=== PATIENT | female | born 1980 | race Caucasian/White ===

== ENCOUNTER 2020-06-01 15:20 | Emergency (ER) | payer SELFPAY ==
[2020-06-01 15:35] VITALS: BP 167/104; PULSE 87; RESP 18; TEMP 36.7; O2SAT 98; BMI 34.9
--- NOTE | 2020-06-01 15:54 | CTR_ITS ---
PROCEDURE INFORMATION: Exam: CT Neck With Contrast Exam date and time: 06/01/2020 4:30 PM Age: 39 years old Clinical indication: Other: Necrotic area on chin; Patient HX: Necrotic area R side of chin - ? spider bite 05/29; Additional info: Necrotic wound on chin TECHNIQUE: Imaging protocol: Computed tomography images of the neck with intravenous contrast. Radiation optimization: All CT scans at this facility use at least one of these dose optimization techniques: automated exposure control; mA and/or kV adjustment per patient size (includes targeted exams where dose is matched to clinical indication); or iterative reconstruction. Contrast material: OMNI 300; Contrast volume: 95 ml; Contrast route: INTRAVENOUS (IV); COMPARISON: No relevant prior studies available. RADIATION DOSE METRICS: Total DLP (mGy-cm): 437.24 FINDINGS: Nasopharynx: Unremarkable. Dental: Numerous missing teeth. Oropharynx: Unremarkable. No significant tonsillar enlargement. Hypopharynx: Unremarkable. Larynx: Unremarkable. Normal epiglottis. Retropharyngeal space: Unremarkable. Submandibular/Parotid glands: Normal. Glands are normal in size. Thyroid: Normal. No enlarged or calcified nodules. Lymph nodes: No visible evidence of significant lymphadenopathy or evidence of suppurative lymphadenitis. Trachea: Visualized trachea is unremarkable. Lungs: Unremarkable as visualized. Bones/joints: No visible active osseous pathology within the field of view. Soft tissues: No visible loculated fluid collection to suggest the presence of a seroma, hematoma, or abscess. Nose ring. CT/CT neck w con* [id number] IMPRESSION: 1. No visible loculated fluid collection to suggest the presence of an abscess, seroma, or hematoma. 2. No visible evidence of reactive lymphadenopathy or suppurative lymphadenitis. Radiation Dose CTDIVOL = (mGy): DLP = 437.24 (mGy-cm)
--- NOTE | 2020-06-01 15:57 | W.ED.WOUNDLC ---
HPI - Wound/Laceration General: Chief Complaint: Wound/Laceration Stated Complaint: spider bite Time Seen by Provider: 06/01/20 15:45 History of Present Illness: HPI narrative: Patient is a 39-year-old female comes to the ED with a wound on the chin. Patient suspects that she was bitten by a spider a couple days ago. Patient noticed on , May 30 that her chin was kind of sore and had some bruising. The bruising on the chin got bigger the next day. In the last 24 hours, the wound is ulcerated and has necrotic tissue and surrounding erythema. She rates the pain 10 out of 10 and she also states that she feels like it is swelling more and noticed that even when she breathes it is painful. She complains of having a headache and feeling light headed. Denies any fevers. Associated symptoms: Denies chills, fever(s), nausea or vomiting Review of Systems Const: Denies: fever(s), chills or fatigue Eyes: Denies: change in vision or eye discomfort ENMT: Denies: throat pain, odynophagia, nasal discharge or nasal congestion Card: Denies: chest pain, palpitations, edema, swelling of feet/ankles, dyspnea on exertion or orthopnea Resp: Denies: dyspnea, productive cough or non-productive cough GI: Denies: abdominal pain, nausea, vomiting, diarrhea, constipation or hematochezia : Denies: flank pain, dysuria or hematuria Musc: Denies: neck pain, back pain or extremity swelling Skin/Breast: Reports: erythema, skin tenderness and new lesions (Wound on chin-possible spider bite.); Denies: rash Neuro: Reports: headache(s); Denies: numbness in extremities or weakness in extremities [facility] ED PFSH: Social History Smoking and tobacco status: current every day smoker Alcohol intake: never Female Reproductive History: Date of last menstrual period: 05/13/20 Physical Exam Const: COMMON NORMALS: no acute distress, patient oriented x3 and alert GENERAL APPEARANCE: cooperative and comfortable HENMT: COMMON NORMALS: normocephalic HEAD & SCALP: normocephalic MOUTH: Normal oral and palatal mucosa present THROAT: posterior oropharynx normal and uvula midline Eye: COMMON NORMALS: Equal, round and reactive pupils present PUPIL: Yes Equal, round and reactive pupils present Neck/C-Spine: COMMON NORMALS: supple GENERAL: Yes normal visual inspection Resp: COMMON NORMALS: normal respiratory effort, No retractions, No use of accessory muscles and clear to auscultation bilaterally AUSCULTATION: clear to auscultation bilaterally Cardio: COMMON NORMALS: regular rate, regular rhythm, S1 normal heart sound present, S2 normal heart sound present, No gallops present (Cardio), No clicks present (Cardio), No murmurs present (Cardio) and Peripheral pulses 2+ throughout RATE: regular rate RHYTHM: regular rhythm HEART SOUNDS: S1 normal heart sound present and S2 normal heart sound present PERIPHERAL PULSES: Peripheral pulses 2+ throughout GI: COMMON NORMALS: Normal to inspection, nondistended, normoactive bowel sounds present, Soft to palpation, non-tender and no masses PALPATION: Yes Soft to palpation : COMMON NORMALS: Yes no CVA tenderness BLADDER/KIDNEY EXAM: Yes no CVA tenderness Back/Pelvis: COMMON NORMALS: no CVA tenderness Extremity: COMMON NORMALS: normal to inspection Neuro: COMMON NORMALS: patient oriented x3 and moves all extremities SENSORIUM/ORIENTATION: Yes alert Skin: WOUNDS: Yes wounds noted (Palpation of wound is firm and warm to the touch.) size (Ulcer approximately half a centimeter in length with surrounding necrotic tissue. There is also surrounding erythema and warmth.) and with surrounding erythema Course Vital Signs: Vital signs: Vital Signs Temperature 98.1 F 06/01/20 15:35 Pulse Rate 82 06/01/20 18:03 Respiratory Rate 14 06/01/20 18:03 Blood Pressure 138/104 06/01/20 18:03 Pulse Oximetry 97 06/01/20 18:03 MDM - Wound/Laceration MDM Narrative: Medical decision making narrative: Patient care was handed over to Rigoberto Burns's PRESCHOOL TEACHER'S ASSISTANT at 5pm. I discussed patient's case with him and told him that the CT of the neck is pending. Once CT report is back discharge plan can be made. Patient is a 31-year-old female comes to the ED with a spider bite on the chin. Wound is ulcerated and has necrotic tissue surrounding it along with surrounding erythema. White blood cells 9.8, hemoglobin 8.7. Blood culture obtained and pending. CT of the neck was performed and showed No visible loculated fluid collection to suggest the presence of an abscess, seroma, or hematoma. No visible evidence of reactive lymphadenopathy or suppurative lymphadenitis. Patient was given IV Rocephin and pain meds while here in the ED. Patient was discharged with a prescription for Keflex, Medrol Dosepak and hydrocodone for pain. Patient told to follow-up with PCP in several days. Patient understood and agreed with plan. Lab Data: Attestation: I reviewed the patient's lab results. Labs: Lab Results 06/01/20 06/01/20 06/01/20 Range/Units 16:00 16:00 16:00 WBC 9.8 (4.0-10.0) 10^3/ uL RBC 4.12 (4.1-5.3) 10^6/u L Hgb 8.7 L (11.5-15.3) g/dL Hct 30.1 L (37.0-47.0) % MCV 73.1 L (81-99) fL MCH 21.1 L (28.0-34.0) pg MCHC 28.9 L (30.0-36.0) g/dL RDW 18.4 H (12.1-15.1) % Plt Count 254 (130-400) 10^3/c mm MPV 10.2 (7.4-10.4) fL Neut % (Auto) 71.4 % Lymph % (Auto) 19.7 % Pershing % (Auto) 7.0 % Eos % (Auto) 1.1 % Baso % (Auto) 0.5 % Neut # (Auto) 7.01 (1.8-7.7) 10^3/u L Lymph # (Auto) 1.9 (0.8-4.8) 10^3/u L Pershing # (Auto) 0.7 (0.2-0.9) 10^3/u L Eos # (Auto) 0.1 (0.0-0.8) 10^3/u L Baso # (Auto) 0.1 (0.0-0.1) 10^3/u L Nucleated RBC % (a uto) 0 % Nucleated RBCs # 0.0 /100WBC Sodium 138 (136-145) mmol/L Potassium 3.8 (3.5-5.1) mmol/L Chloride 108 H (98-107) mmol/L Carbon Dioxide 19 L (22-29) mmol/L Anion Gap 14.8 (5-19) BUN 11 (6-20) mg/dL Creatinine 0.7 (0.5-0.9) mg/dL GFR Calculation 93.6 (90-130) mL/min Glucose 110 (65-115) mg/dL Calculated Osmolal ity 283 L (285-295) mOsm/k g Calcium 8.8 (8.5-10.5) mg/dL Total Bilirubin 0.2 (0.15-1.2) mg/dL AST 25 (0-32) U/L ALT 28 (0-33) U/L Alkaline Phosphata se 107 H (35-105) IU/L C-Reactive Protein 70.0 H (0.0-4.9) mg/L Total Protein 7.6 (6.6-8.7) g/dL Albumin 4.3 (3.5-5.2) g/dL Globulin 3.3 (1.3-4.6) g/dL HCG, Qual Negative (Negative) Blood Type Rho(D) Type Antibody Screen 06/01/20 Range/Units 16:56 WBC (4.0-10.0) 10^3/ uL RBC (4.1-5.3) 10^6/u L Hgb (11.5-15.3) g/dL Hct (37.0-47.0) % MCV (81-99) fL MCH (28.0-34.0) pg MCHC (30.0-36.0) g/dL RDW (12.1-15.1) % Plt Count (130-400) 10^3/c mm MPV (7.4-10.4) fL Neut % (Auto) % Lymph % (Auto) % Pershing % (Auto) % Eos % (Auto) % Baso % (Auto) % Neut # (Auto) (1.8-7.7) 10^3/u L Lymph # (Auto) (0.8-4.8) 10^3/u L Pershing # (Auto) (0.2-0.9) 10^3/u L Eos # (Auto) (0.0-0.8) 10^3/u L Baso # (Auto) (0.0-0.1) 10^3/u L Nucleated RBC % (a uto) % Nucleated RBCs # /100WBC Sodium (136-145) mmol/L Potassium (3.5-5.1) mmol/L Chloride (98-107) mmol/L Carbon Dioxide (22-29) mmol/L Anion Gap (5-19) BUN (6-20) mg/dL Creatinine (0.5-0.9) mg/dL GFR Calculation (90-130) mL/min Glucose (65-115) mg/dL Calculated Osmolal ity (285-295) mOsm/k g Calcium (8.5-10.5) mg/dL Total Bilirubin (0.15-1.2) mg/dL AST (0-32) U/L ALT (0-33) U/L Alkaline Phosphata se (35-105) IU/L C-Reactive Protein (0.0-4.9) mg/L Total Protein (6.6-8.7) g/dL Albumin (3.5-5.2) g/dL Globulin (1.3-4.6) g/dL HCG, Qual (Negative) Blood Type O Negative Rho(D) Type Negative Antibody Screen Negative Imaging Data^: Other CT: Attestation: I personally reviewed and interpreted this imaging study as follows: Radiologist's impression: [address] [address] [address] Scan Report Signed Patient: Amy Krishnan Unit #: [id number] : 1980 Age/Sex: 39 / F ADM Date: 06/01/20 Loc: ER Room/Bed: Attending Dr: Ordering Provider/Ordering MD: Malachi Santillan Date of Service: 06/01/20 Procedure(s): CT neck w con* [id number] Accession Number(s): [id number] Report Number: [id number] PROCEDURE INFORMATION: Exam: CT Neck With Contrast Exam date and time: 06/01/2020 4:30 PM Age: 39 years old Clinical indication: Other: Necrotic area on chin; Patient HX: Necrotic area R side of chin - ? spider bite 05/29; Additional info: Necrotic wound on chin TECHNIQUE: Imaging protocol: Computed tomography images of the neck with intravenous contrast. Radiation optimization: All CT scans at this facility use at least one of these dose optimization techniques: automated exposure control; mA and/or kV adjustment per patient size (includes targeted exams where dose is matched to clinical indication); or iterative reconstruction. Contrast material: OMNI 300; Contrast volume: 95 ml; Contrast route: INTRAVENOUS (IV); COMPARISON: No relevant prior studies available. RADIATION DOSE METRICS: Total DLP (mGy-cm): 437.24 FINDINGS: Nasopharynx: Unremarkable. Dental: Numerous missing teeth. Oropharynx: Unremarkable. No significant tonsillar enlargement. Hypopharynx: Unremarkable. Larynx: Unremarkable. Normal epiglottis. Retropharyngeal space: Unremarkable. Submandibular/Parotid glands: Normal. Glands are normal in size. Thyroid: Normal. No enlarged or calcified nodules. Lymph nodes: No visible evidence of significant lymphadenopathy or evidence of suppurative lymphadenitis. Trachea: Visualized trachea is unremarkable. Lungs: Unremarkable as visualized. Bones/joints: No visible active osseous pathology within the field of view. Soft tissues: No visible loculated fluid collection to suggest the presence of a seroma, hematoma, or abscess. Nose ring. CT/CT neck w con* [id number] IMPRESSION: 1. No visible loculated fluid collection to suggest the presence of an abscess, seroma, or hematoma. 2. No visible evidence of reactive lymphadenopathy or suppurative lymphadenitis. Radiation Dose CTDIVOL = (mGy): DLP = 437.24 (mGy-cm) Dictated By: Sudhir Alexander Signed By: Sudhir Alexander Signed Date/Time: 06/01/201725 DD/ 24 Discharge Plan Discharge Patient Disposition: Home Clinical Impression: Brown recluse spider bite Qualifiers: Encounter type: initial encounter Injury intent: accidental or unintentional Qualified Code(s): T63.331A - Toxic effect of venom of brown recluse spider, accidental (unintentional), initial encounter Condition: Stable Prescriptions: New Medrol (Saman) 4 mg tablets,dose pack See Rx Instructions .ROUTE .COMPLEX Qty: 21 RF: 0 hydrocodone-acetaminophen 5-325 mg tablet 1 tab PO Q6H PRN (Reason: pain) Qty: 10 RF: 0 Keflex 500 mg capsule 500 mg PO TID 7 Days Qty: 21 RF: 0 No Action Benadryl Allergy 25 mg Tablet 25 mg PO DAILY RF: 0 ibuprofen 200 mg Tablet 200 - 400 mg PO PRN PRN (Reason: Pain) RF: 0 omeprazole 20 mg Tablet,Delayed Release (Dr/Ec) 20 mg PO DAILY RF: 0 Discharge Orders: Discharge Order (Routine); Ordered 06/01/20 Ordered By: Rigoberto Burns Discharge Diet: Usual diet Discharge Activity: Resume usual activity Patient Instructions: Brown Recluse Spider Bite (ED) Activity Restrictions/Additional Instructions: Follow-up with medical provider as directed. Take medications as prescribed. Return to the ER or your medical provider if condition worsens. Please read and understand discharge instructions. If any questions ask please. Off work for 2 days. Establish with a primary care provider in this area. If you can find 1 go to the urgent care to establish. 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
[2020-06-01] MEDS: cefTRIAXone 2,000 MG in sodium chloride 0.9% (plus) 50 ML 100 MG IV (16:04)
[2020-06-01] MEDS: ondansetron 2 mg/ML SDV 2 mL 4 MG IVP (16:04)
[2020-06-01] MEDS: morphine 4 mg/mL SDV 1 mL IVP (16:04)
[2020-06-01] MEDS: sodium chloride 0.9% 1,000 ML 999 ML IV (16:05)
[2020-06-01 16:12] VITALS: BP 176/105; PULSE 85; RESP 14; O2SAT 98
[2020-06-01 16:17] LABS: Basophils # 0.1 10^3/uL (0.0-0.1); Basophils % 0.5 %; Eosinophils # 0.1 10^3/uL (0.0-0.8); Eosinophils % 1.1 %; Hematocrit 30.1 % (37.0-47.0); Hemoglobin 8.7 g/dL (11.5-15.3); Lymphocytes # 1.9 10^3/uL (0.8-4.8); Lymphocytes % 19.7 %; Mean Corpuscular HGB Conc 28.9 g/dL (30.0-36.0); Mean Corpuscular Hemoglobin 21.1 pg (28.0-34.0); Mean Corpuscular Volume 73.1 fL (81-99); Mean Platelet Volume 10.2 fL (7.4-10.4); Monocytes # 0.7 10^3/uL (0.2-0.9); Neutrophils # 7.01 10^3/uL (1.8-7.7); Neutrophils % 71.4 %; Nucleated Red Blood Cells % 0 %; Platelet Count 254 10^3/cmm (130-400); Red Blood Count 4.12 10^6/uL (4.1-5.3); Red Cell Distribution Width 18.4 % (12.1-15.1); White Blood Count 9.8 10^3/uL (4.0-10.0)
[2020-06-01 16:33] LABS: HCG, Serum Qual Negative (Negative)
[2020-06-01 16:39] LABS: Alanine Aminotransferase 28 U/L (0-33); Albumin Level 4.3 g/dL (3.5-5.2); Alkaline Phosphatase 107 IU/L (35-105); Anion Gap 14.8 (5-19); Aspartate Amino Transferase 25 U/L (0-32); Blood Urea Nitrogen 11 mg/dL (6-20); Calcium 8.8 mg/dL (8.5-10.5); Carbon Dioxide 19 mmol/L (22-29); Chloride 108 mmol/L (98-107); Creatinine Clr Calc Pharmacy 111.3242; Globulin 3.3 g/dL (1.3-4.6); Glomerular Filtration Rate 93.6 mL/min (90-130); Glucose 110 mg/dL (65-115); Osmolality Calculated 283 mOsm/kg (285-295); Potassium 3.8 mmol/L (3.5-5.1); Sodium 138 mmol/L (136-145); Total Bilirubin 0.2 mg/dL (0.15-1.2); Total Protein 7.6 g/dL (6.6-8.7)
[2020-06-01] MEDS: iohexol 300 mg/mL 100 mL Btl IV (16:47)
[2020-06-01 18:03] VITALS: BP 138/104; PULSE 82; RESP 14; O2SAT 97
== END 2020-06-01 18:04 | disposition home or self-care (01) ==
PROVIDERS: Physician Assistant; Emergency Provider Nurse Practitioner Family
DX: T63.331A Toxic effect of venom of brown recluse spider, accidental (unintentional), initial encounter (principal); F17.210 Nicotine dependence, cigarettes, uncomplicated
CPT/HCPCS: 12345; 70491; 80053; 84703; 85025; 86140; 86850; 86900; 87040; 96365; 96375; 99282; 99284; J0696; J2270; J2405; J7030; Q9967

== ENCOUNTER → 2021-07-23 07:48 | Outpatient (BNVA) | payer OTHER, SELFPAY | PROVIDERS: Visit Provider Nurse Practitioner Family | DX: R05 Cough (principal); Z20.822 Contact with and (suspected) exposure to COVID-19 | CPT/HCPCS: 87635 ==